=== PATIENT | female | born 1975 | race American Indian/Alaskan Native ===

== ENCOUNTER 2019-08-09 09:01 | Day surgery (SDC) | payer OTHER ==
[~2019-08-09 09:01] MED LIST: SODIUM CHLORIDE 0.9% 1000 ML 1,000 ML, EPINEPHrine/PF 1:1,000 1 MG, LIDOCAINE 1% 20 mL ... IJ SCH; ceFAZolin/Water 2 GM/20 ML 2 GM/20 ML SYRINGE IV NR
--- NOTE | 2019-08-09 09:37 | Anesthesia Day of Surgery ---
Anesthesia Day of Surgery - Day of Surgery Patient Examined: Yes Patient H&P Reviewed: Yes Patient is NPO: Yes
--- NOTE | 2019-08-09 09:37 | Anesthesia Consultation ---
Anesthesia Consult and Med Hx Date of service: 08/09/19 - Airway Anesthetic Teeth Evaluation: Good ROM Head & Neck: Adequate Mental/Hyoid Distance: Adequate Mallampati Class: Class III Intubation Access Assessment: Possibly Difficult - Pulmonary Exam CTA: Yes - Cardiac Exam Cardiac Exam: RRR - Pre-Operative Health Status ASA Pre-Surgery Classification: ASA1 Proposed Anesthetic Plan: General - Pulmonary Hx Smoking: No Hx Respiratory Symptoms: No - Cardiovascular System Hx Hypertension: No - Central Nervous System CVA: No - Endocrine Hx Renal Disease: No Hx Liver Disease: No Hx Insulin Dependent Diabetes: No Hx Non-Insulin Dependent Diabetes: No Hx Thyroid Disease: No - Other Systems Hx Obesity: No - Additional Comments Anesthesia Medical History Comments: No prior GA. No FHx anesthetic complications.
[2019-08-09] MEDS ORDERED: HYDROmorphone 1 MG/1 ML INJ ONE ×2 (09:53→16:54)
[2019-08-09] MEDS ORDERED: PROPOFOL 200 MG/20 ML VIAL IV ONE ×2 (09:54→15:41)
[2019-08-09] MEDS ORDERED: LIDOCAINE MPF (2%) 20 MG/1 ML VIAL 5 ML ONE (09:56)
[2019-08-09] MEDS ORDERED: ROCURONIUM 50 MG/5 ML INJ IV ONE (09:57)
[2019-08-09] MEDS ORDERED: LIDOCAINE 1%/EPINEPHRINE 1:100,000 VIAL (20 ML) INFILTRATI ONE ×2 (09:59→12:24)
[2019-08-09] MEDS ORDERED: ACETAMINOPHEN 500 MG TAB PO NR (10:00)
[2019-08-09] MEDS ORDERED: GABAPENTIN 300 MG CAP PO NR (10:00)
[2019-08-09] MEDS ORDERED: BACITRACIN 50,000 UNIT VIAL ONE (10:00)
[2019-08-09] MEDS ORDERED: ceFAZolin 1 GM VIAL ONE ×3 (10:00→15:21)
[2019-08-09] MEDS ORDERED: HYDROmorphone 1 MG/1 ML INJ IV PRN (10:00)
[2019-08-09] MEDS ORDERED: LACTATED RINGERS 1,000 ML IV SCH (10:00)
[2019-08-09] MEDS ORDERED: GENTAMICIN 40 MG/ML VIAL 2 ML ONE (10:00)
[2019-08-09] MEDS ORDERED: SCOPOLAMINE TRANSDERMAL PATCH 72 HR TD NR (10:00)
[2019-08-09] MEDS ORDERED: MIDAZOLAM 2 MG/2 ML INJ IV NR (10:00)
[2019-08-09] MEDS ORDERED: SODIUM CHLORIDE P/F VIAL 10 ML 20 ML ONE (10:01)
[2019-08-09] MEDS ORDERED: dexAMETHasone 20 MG/5 ML VIAL ONE (10:59)
[2019-08-09] MEDS ORDERED: ONDANSETRON 4 MG/2 ML INJ ONE (11:00)
[2019-08-09] MEDS ORDERED: LACTATED RINGERS 0 ML ONE (11:35)
[2019-08-09] MEDS ORDERED: LACTATED RINGERS 1,000 ML ONE ×2 (11:35→13:11)
[2019-08-09] MEDS ORDERED: BACITRACIN 50,000 UNIT VIAL IR ONE (12:24)
[2019-08-09] MEDS ORDERED: ceFAZolin 1 GM VIAL IV ONE (12:24)
[2019-08-09] MEDS ORDERED: SODIUM CHLORIDE 0.9% P/F 10 ML VIAL INFILTRATI ONE (12:25)
[2019-08-09] MEDS ORDERED: SODIUM CHLORIDE 0.9% IRR 1,500 ML BOTTLE IR ONE (12:26)
[2019-08-09] MEDS ORDERED: GLYCOPYRROLATE 0.4 MG/2 ML INJ ONE (15:25)
[2019-08-09] MEDS ORDERED: NEOSTIGMINE 10MG/10 ML INJ MDV ONE (15:25)
[2019-08-09] MEDS ORDERED: SUCCINYLCHOLINE CHLORIDE 200 MG/10 ML INJ MDV ONE (15:41)
--- NOTE | 2019-08-09 18:03 | Operative Report ---
Operative Report Operative Report: Plastic Surgery Operative Note Preoperative Diagnosis: Unacceptable cosmetic appearance Postopertive Diagnosis: Same Procedure: Bilateral breast augmentation mammaplasty with silicone implants ; Full lipoabdominoplasty Surgeon: Dr. Whitney Marlow Surgical Clinical Reviewer: None Anesthesia: General endotracheal EBL: 50cc Indications: This patient is a 43 year old AAF who presented with complaint of lost breast fullness and volume after childbearing. Since then she has also had stretch coy on her abdomen and loose skin that affect her self confidence. Of note, she is a fitness competitor and the loss of body fat has also adversely affected the appearance of her breasts. She desires a Mommy Makeover for a f uller, more perky appearance in her breasts and to achieve a flat, taut abdomen. We discussed the benefits and risks of surgery including implant rupture, infection, capsular contracture, infection, hematoma, seroma, scarring and the need for further surgery. Patient understands and accepts these risks and desires to proceed with surgery. Procedure: After marking in preoperative holding the patient was brought into the operating room and placed supine on the OR table. After induction of adequate general endotracheal anesthesia, the patient's chest and abdomen were prepped and draped in the usual sterile surgical fashion. To begin, markings were refreshed and 1% lidocaine with epinephrine was injected into the incisions. A horizontal incision was made in the right breast to access the pectoralis muscle and fascia. A subpectoral pocket was created. Hemostasis was achieved with electrocautery. The pocket was then irrigated with triple antibiotic solution and a 400cc Felton smooth round high profile, using the Teixeira funnel was placed without difficulty. The same process was repeated on the left side and the exact same size implant was also placed using the funnel. Once satisfied with implant placement, attention was then turned to the lipoabdominoplasty portion of the procedure. Using an 11 blade, cannula entry incisions were made in the lower abdomen, and 1 L of tumescent solution was infiltrated into the tissues of the abdomen and flanks. Power assisted liposcution was performed until aspirate was blood-tinged, for a total of 850cc removed, 350cc of which was pure fat. We then began the tummy tuck portion of the procedure, creating a lower abdominal incision using a 10 blade, which was carried through subcutaneous tissue using the electrocautery. This dissection along the rectus fascia was carried cephalad to the xiphoid process, after which point rectus diastasis (measuring 5 cm at its widest) was repaired using 0 PDO Quill suture. The bed was then placed in a beach chair position and the lower abdominal pannus was marked and sharply excised. Of note, the part of the abdominal skin flap from which the umbilicus was excised was too high to comp letely remove, and so ultimately the lower abdominal incision has a "T" intersection at midline where her umbilicus used to be. A 19 Fr Paul drain was placed and secured with a 2-0 Nylon suture and we began closure of her incisions in 3 layers beginning with a PDO Quill suture to approximate Matthew's fascia follwed by 3-0 Monoderm Quill in 2 layers. The umbilicus was delivered through the abdominal skin flap and secured with 2-0 Monocryl and 3-0 Monoderm subcuticular sutures. All incisions were then sealed with Dermabond. Telfa and tegaderm dressings were then placed on the breasts along with ABD pads to the abdomen, followed by surgical bra and compression garment. Patient was then being awakened from general anesthesia when she coughed, resulting in a loud popping sound that was obviously the rupture of her rectus diastasis repair. Upon evaluation the decision was made to re-prep the abdomen and open her existing incisions for repair of the rectus diastasis. The periumbilical and veritical incisions only were opened and the broken suture of the original repair was identified and removed. 2-0 PDS suture was used to place both running and interrupted sutures along the midline diastasis repair for reinforcement. Satisfied with the yarsanism of her abdominal contour, we then began a closure of the periumbilical and vertical incisions in a 3-layered fashion. Dermabond was the placed on her incisions folowed by fresh dressings as above. An abdominal binder and bra wrap were placed and the patient was awakened and transferred to PACU in stable condition. All sponge, needle and instrument counts were correct at the end of the case.
[2019-08-09] MEDS ORDERED: ALBUTEROL 2.5 MG/3 ML NEBU IH ONE (18:05)
[2019-08-09] MEDS ORDERED: SODIUM CHLORIDE FOR INHALATION NEBU 3 ML ONE (18:09)
[2019-08-09] MEDS ORDERED: fentaNYL 100 MCG/2 ML INJ IV PRN (18:38)
[2019-08-09 20:38] VITALS: BP 107/60
--- NOTE | 2019-08-09 23:41 | Post Anesthesia Evaluation ---
- Post Anesthesia Evaluation Patient Participated: Yes Airway Patent: Yes Stable Respiratory Function: Yes Nausea/Vomiting: Yes (mild; resolved with IV antiemetics) Temp > 96.8F: Yes Pain Manageable: Yes Adequeate Hydration: Yes Anesthesia Complications: No Other Comments: Patient initially had thin pink, frothy secretions which resolved shortly after arrival. SpO2 remained >90% on supplemental O2. Received albuterol neb and incentive spirometry. At time of d/c, SpO2 >92% on room air with normal work of breathing and no complaint of dyspnea.
== END 2019-08-09 21:30 | disposition home or self-care (01) ==
LOC: OR 09:01
PROVIDERS: ATTEND Plastic Surgery
DX: Z41.1 Encounter for cosmetic surgery (principal)
CPT/HCPCS: 15830; 15847; 19325; C1789; J0171; J0330; J0690; J1100; J1170; J1580; J2250; J2405; J2704; J2710; J3010; J7030; J7120